=== PATIENT | male | born 1980 | race Caucasian/White ===

== ENCOUNTER 2018-09-23 14:33 | Emergency (ER) | payer OTHER ==
[2018-09-23] MEDS ORDERED: DIPH/PERTUSS(ACELL)/TETANUS VAC/PF 0.5 ML SYR (>=10YO) IM ONE (15:08)
--- NOTE | 2018-09-23 15:10 | ER Document Report ---
ED Medical Screen (RME) - General Chief Complaint: Facial Injury Stated Complaint: FACE LACERATION Time Seen by Provider: 09/23/18 15:03 TRAVEL OUTSIDE OF THE [place] IN LAST 30 DAYS: No - HPI Notes: 09/23/18 15:08 Patient is a 38-year-old male with no significant past medical history who presents complaining of a skin avulsion/laceration to his nose by an attic door prior to arrival. Unknown last tetanus. Patient states that he is missing chunk of skin in that area. Patient states he did lose a veneer from a tooth, but does not have any bony pain of his face otherwise. Denies TRAN, LOC, fever, neck pain, URI, CP, SOB, Abd pain, dysuria, back pain, or rash. I have treated and performed a rapid initial assessment of this patient. A comprehensive ED assessment and evaluation of the patient, analysis of test results and completion of medical decision making process will be conducted by additional ED providers. PHYSICAL EXAMINATION: GENERAL: Well-appearing, well-nourished and in no acute distress. A&Ox4. Answers questions appropriately. Face: There is a large skin avulsion (superficial) noted to the nose. Nose is otherwise midline. There does appear to be a distal laceration that will need further investigation. No bony tenderness to the face. - Related Data Allergies/Adverse Reactions: No Known Allergies Allergy (Verified 09/23/18 14:34) Physical Exam - Vital signs Vitals: Pulse Resp BP Pulse Ox 60 18 132/71 H 96 09/23/18 14:35 09/23/18 14:35 09/23/18 14:35 09/23/18 14:35 Course - Vital Signs Vital signs: Temp Pulse Resp BP Pulse Ox 60 18 132/71 H 96 09/23/18 14:35 09/23/18 14:35 09/23/18 14:35 09/23/18 14:35
[2018-09-23] MEDS ORDERED: ONDANSETRON 4 MG TAB.RAPDIS PO ONE (16:50)
[2018-09-23] MEDS ORDERED: OXYCODONE-ACETAMINOPHEN 5-325 MG TABLET PO ONE (16:50)
[2018-09-23] MEDS ORDERED: LIDOCAINE 4%/TETRACAINE 0.5%/EPI 0.18% 5 ML TOPICAL SOLN TOP ONE (17:02)
--- NOTE | 2018-09-23 17:49 | ER Document Report ---
Addendum entered and electronically signed by BIRD WELCH FNP 09/24/18 01:03: Physical Exam - Vital signs Vitals: Pulse Resp BP Pulse Ox 60 18 132/71 H 96 09/23/18 14:35 09/23/18 14:35 09/23/18 14:35 09/23/18 14:35 - Notes Notes: GENERAL: Well-appearing, well-nourished and in no acute distress. HEAD: Atraumatic, normocephalic. EYES: Pupils equal round and reactive to light, extraocular movements intact, sclera anicteric, conjunctiva are normal. ENT: TMs normal, nares patent, large amount of tissue missing from the nose which appears to be a partial degloving with a 2 mm step off at the tip of the nose, no active bleeding, there is no nasal septal hematoma or septal deviation, no crepitus noted to facial bones with palpation, patient does have a veneer missing from the front tooth without any other gum or dental injury, oropharynx clear without exudates. Moist mucous membranes. NECK: Normal range of motion, supple without lymphadenopathy or JVD. LUNGS: Breath sounds clear to auscultation bilaterally and equal. No wheezes rales or rhonchi. HEART: Regular rate and rhythm without murmurs, rubs or gallops. ABDOMEN: Soft, nontender, normoactive bowel sounds. No guarding, no rebound. No masses appreciated. BACK: No cervical, thoracic, lumbar midline tenderness. No saddle anesthesia, normal distal neurovascular exam. GENITOURINARY: Deferred. EXTREMITIES: Normal range of motion, no pitting or edema. No clubbing or c yanosis. NEUROLOGICAL: Cranial nerves II through XII grossly intact. Normal speech, normal gait. PSYCH: Normal mood, normal affect. SKIN: Warm, Dry, normal turgor, no rashes or lesions noted. - HEENT Teeth diagram: 1 - chipped/missing veneer Original Note: ED Head/Face/Scalp Injury - General TRAVEL OUTSIDE OF THE [place] IN LAST 30 DAYS: No - General Chief Complaint: Facial Injury Stated Complaint: FACE LACERATION Time Seen by Provider: 09/23/18 15:03 Notes: Patient is a 38-year-old male with a history of ulcerative colitis who presents to the emergency department with a chief complaint of facial injury. Patient states that about 1 hour prior to arrival to the emergency department him and a friend were carrying two boards that were connected by a spring. The patient states that they were attempting to install an attic door. Patient states that the spring snapped in the 2 boards closed together. Patient states that the boards closed together on the edge and pinched the tip of his nose. Patient reports significant pain and deformity to the nasal area. Patient denies a specific nosebleed from the nasal area. Patient denies loss of consciousness. Patient denies any other head injury or neck pain. Patient states he is unsure of his tetanus shot is up-to-date. (BIRD WELCH) - Related Data Allergies/Adverse Reactions: No Known Allergies Allergy (Verified 09/23/18 14:34) Past Medical History - General Information source: Patient - Social History Smoking Status: Never Smoker Cigarette use (# per day): No Frequency of alcohol use: Occasional Drug Abuse: None Lives with: Family Family History: None Patient has suicidal ideation: No Patient has homicidal ideation: No - Past Medical History Cardiac Medical History: Reports: None Pulmonary Medical History: Reports: None EENT Medical History: Reports: None Neurological Medical History: Reports: None Endocrine Medical History: Reports: None Renal/ Medical History: Reports: None. Denies: Hx Peritoneal Dialysis Malignancy Medical History: Reports None GI Medical History: Reports: Hx Ulcerative Colitis Musculoskeletal Medical History: Reports None Skin Medical History: Reports None Psychiatric Medical History: Reports: None Traumatic Medical History: Reports: None Infectious Medical History: Reports: None Surgical Hx: Negative Review of Systems - Review of Systems Constitutional: No symptoms reported EENT: See HPI Cardiovascular: No symptoms reported Respiratory: No symptoms reported Gastrointestinal: No symptoms reported Genitourinary: No symptoms reported Male Genitourinary: No symptoms reported Musculoskeletal: No symptoms reported Skin: No symptoms reported Hematologic/Lymphatic: No symptoms reported Neurological/Psychological: No symptoms reported - Vital signs Vitals: Pulse Resp BP Pulse Ox 60 18 132/71 H 96 09/23/18 14:35 09/23/18 14:35 09/23/18 14:35 09/23/18 14:35 Course - Re-evaluation Re-evalutation: 09/23/18 16:45 Upon his initial assessment patient is sitting upright on stretcher and in no acute distress. Patient has a wet dressing over the nasal area. Patient's tetanus was updated in triage. Patient complains of significant pain to the tip of his nose. Will give patient antinausea and pain medication. There does not appear to be an area in which a suture repair is needed. I will consult with my attending physician Dr. Tinsley for further evaluation and management. 09/23/18 18:55 Paged [facility] to consult with plastic surgery. 09/23/18 19:[address] Nik Crowell with plastic surgery at [facility] and discussed patient case and significance of wound, I did state our ENT was concerned that he would need a full thickness skin graft but that we did not have plastics communication center coordinator. He recommends placing a bandage over the wound to include bactriacin, xeroform, and a protective dressing and following up with him in the office on Tuesday at [facility]; have patient call at 0830 am on Tuesday and ask for Olivia. He states he would see the patient outpatient and place patient on the OR schedule for early next week. I did discuss this with my supervising physician Dr. Richelle Tinsley who is in agreement with the plan. (BIRD WELCH) 09/23/18 22:11 I did personally seen and examined this patient in conjunction with the nurse practitioner Bird Welch. Patient sustained a blunt force trauma injury to his nose. There is no nasal septal hematoma, there is no deviation to the nose or the nasal septum itself. There is a large amount of tissue missing from the nose consistent with partial degloving injury. The very tip of the nose is still intact though I am concerned by the large amount of tissue that is missing particularly the step-off around the tip of his nose. I did speak with Dr. Calderón the ENT who is on-call at this facility at this time. He states that this patient will be best served by seeing a plastic surgeon as he will likely need a full-thickness skin graft. We did discuss the case as noted with a surgeon from [facility]. Please see the rest of Aditya's note for further information. (RICHELLE BURGOS) - Vital Signs Vital signs: Temp Pulse Resp BP Pulse Ox 98.2 F 60 16 128/68 H 100 09/23/18 21:13 09/23/18 21:13 09/23/18 21:13 09/23/18 21:13 09/23/18 21:13 Discharge - Discharge Clinical Impression: Injury of nose Qualifiers: Encounter type: initial encounter Qualified Code(s): S09.92XA - Unspecified injury of nose, initial encounter Condition: Stable Disposition: HOME, SELF-CARE Additional Instructions: Today you were seen in the emergency department for an injury to the nose. Your tetanus shot was updated and you have been giving pain medication while you were here. I did speak with the on-call plastic surgeon at [facility] in [place] Dr. Nik Crowell who would like to see you in his office on Tuesday. Dr. Crowell is located at [facility] and the telephone number is [phone] - he states to call the office Tuesday around 0830 and ask for Olivia. The plan is to see you in the office and place you on the OR schedule early next week for surgical intervention of your nose. Until Tuesday he did recommend using bacitracin and a Xeroform gauze with a bandage over the nose. We have dressed you appropriately while in the emergency department and have given you additio nal supplies to dress the wound on Tuesday. I would keep the dressing on until you are seen in the office on Tuesday after changing it tomorrow. Dr. Nik Crowell [facility] [phone] [facility] [address] [place] [address] Please return to the emergency department if you develop any persistent bleeding to the site, increased swelling or increased pain that is uncontrolled with pain medication. Prescriptions: Amox Tr/Potassium Clavulanate [Augmentin 875-125 Tablet] 1 tab PO BID 5 Days #10 tablet
[2018-09-23] MEDS ORDERED: AMOXICILLIN TRIHYD 250 MG CAPSULE PO ONE (20:27)
[2018-09-23] MEDS ORDERED: AMOXICILLIN TR/POT CLAVULANATE 500-125 MG TAB PO ONE (20:27)
[2018-09-23] MEDS ORDERED: HYDROCODONE/ACETAMINOPHEN 5-325 MG (6 TAB/ER DISP) PO PRN (20:30)
[2018-09-23 21:14] VITALS: BP 128/68
== END 2018-09-23 21:14 | disposition home or self-care (01) ==
LOC: ER 14:33
DX: S01.81XA Laceration without foreign body of other part of head, initial encounter (principal); W22.8XXA Striking against or struck by other objects, initial encounter
CPT/HCPCS: 99283; 90471; 90715; J3490 ×2; S0119

== ENCOUNTER 2019-12-30 17:55 | Emergency (ER) | payer OTHER ==
--- NOTE | 2019-12-30 18:41 | ER Document Report ---
ED Medical Screen (RME) - General Chief Complaint: Neck Pain >24hrs old Stated Complaint: EAR,HEAD PAIN Time Seen by Provider: 12/30/19 18:33 Mode of Arrival: Ambulatory Information source: Patient Notes: 39-year-old male presented ED for complaint of pain in front of and behind the left ear. She does not have a definite ear infection on the left side. He states he has been home going for about 4 days. He states he has not had any fevers. He does not have any obvious dental infections. He does not have any obvious abscesses. He states the pain is getting worse. He does have pain with movement of the ear. He does have inflamed lymph nodes to that side of his neck. We will get blood work and a IV contrasted CT of the soft tissue neck. I have greeted and performed a rapid initial assessment of this patient. A comprehensive ED assessment and evaluation of the patient, analysis of test results and completion of medical decision making process will be conducted by an additional ED providers. TRAVEL OUTSIDE OF THE [place] IN LAST 30 DAYS: No - Related Data Allergies/Adverse Reactions: No Known Allergies Allergy (Verified 12/30/19 18:31) Past Medical History - Social History Chew tobacco use (# tins/day): No Frequency of alcohol use: Occasional Drug Abuse: None Renal/ Medical History: Denies: Hx Peritoneal Dialysis GI Medical History: Reports: Hx Ulcerative Colitis Physical Exam - Vital signs Vitals: Temp Pulse Resp BP Pulse Ox 97.7 F 67 16 137/84 H 97 12/30/19 18:06 12/30/19 18:06 12/30/19 18:06 12/30/19 18:06 12/30/19 18:06 Course - Vital Signs Vital signs: Temp Pulse Resp BP Pulse Ox 97.7 F 67 16 137/84 H 97 12/30/19 18:06 12/30/19 18:06 12/30/19 18:06 12/30/19 18:06 12/30/19 18:06
[2019-12-30] MEDS ORDERED: CLINDAMYCIN 600 MG/D5W RTU 600 MG/50 ML RTUPB IV ONE (18:44)
[2019-12-30] MEDS ORDERED: DEXAMETHASONE SOD PHOS INJ 10 MG/1 ML VIAL IV ONE ×2 (18:44→22:07)
[2019-12-30 19:35] LABS: ALBUMIN 4.3 g/dL (3.5-5.0); ALKALINE PHOSPHATASE 58 U/L (38-126); ANION GAP 10 (5-19); ASPARTATE AMINO TRANSFERASE 30 U/L (17-59); BILIRUBIN,DIRECT 0.2 mg/dL (0.0-0.4); BILIRUBIN,TOTAL 0.5 mg/dL (0.2-1.3); BLOOD UREA NITROGEN 12 mg/dL (7-20); CALCIUM 9.8 mg/dL (8.4-10.2); CARBON DIOXIDE 24 mmol/L (22-30); CHLORIDE 107 mmol/L (98-107); GLUCOSE 98 mg/dL (75-110); TOTAL PROTEIN 7.1 g/dL (6.3-8.2)
[2019-12-30 19:41] LABS: ABSOLUTE BASOPHILS # (AUTO) 0.1 10^3/uL (0.0-0.2); ABSOLUTE EOSINOPHILS # (AUTO) 0.4 10^3/uL (0.0-0.6); ABSOLUTE LYMPHOCYTES (AUTO) 2.5 10^3/uL (0.5-4.7); ABSOLUTE MONOCYTES (AUTO) 1.2 10^3/uL (0.1-1.4); ABSOLUTE NEUT (AUTO) 4.5 10^3/uL (1.7-8.2); HEMATOCRIT 50.5 % (37.9-51.0); HEMOGLOBIN 17.7 g/dL (13.5-17.0); LYMPHOCYTES % (AUTO) 28.5 % (13-45); MEAN CORPUSCULAR HEMOGLOBIN 31.1 pg (27.0-33.4); MEAN CORPUSCULAR VOLUME 89 fl (80-97); MONOCYTES % (AUTO) 13.4 % (3-13); PLATELET COUNT 281 10^3/uL (150-450); RED BLOOD COUNT 5.67 10^6/uL (4.35-5.55); RED CELL DISTRIBUTION WIDTH 13.2 % (11.5-14.0); SEGMENTED NEUTROPHILS % (AUTO) 52.1 % (42-78); TOTAL CELLS COUNTED % (AUTO) 100 %; WHITE BLOOD COUNT 8.7 10^3/uL (4.0-10.5)
--- NOTE | 2019-12-30 20:21 | RADIOLOGY REPORT (SQ) ---
EXAM DESCRIPTION: CT neck with contrast CLINICAL HISTORY: 39 years Male, Left periauricular pain COMPARISON: None. TECHNIQUE: Axial images of the neck were performed utilizing intravenous contrast, with sagittal and coronal reformatted images. This exam was performed according to our departmental dose-optimization program which includes use of Automated Exposure Control, adjustment of the mA and/or kV according to patient size and/or use of iterative reconstruction technique. FINDINGS: There is no evidence of abscess in the left periauricular region. The mastoid air cells and middle ear cavities are normally aerated. The epiglottis appears normal. The airways patent. There is no significant adenopathy. There is a retention cyst in the left maxillary sinus. IMPRESSION: No acute finding.
--- NOTE | 2019-12-30 23:40 | ER Document Report ---
ED General - General Chief Complaint: Neck Pain >24hrs old Stated Complaint: EAR,HEAD PAIN Time Seen by Provider: 12/30/19 18:33 Mode of Arrival: Ambulatory TRAVEL OUTSIDE OF THE [place] IN LAST 30 DAYS: No - HPI Notes: Patient is a healthy 39-year-old male who presents with bilateral cervical lymphadenopathy and rash to the top of his head. Patient states that about 1 week ago he was hunting. He sustained several mosquito bites to the top of his head. He states they have been itchy and he has been scratching them. Several days ago, he noticed some pain in front and behind his bilateral ears. He also has some pain and swelling at the sides of his neck bilaterally. He denies any fevers. No neck stiffness. He does have a slight headache. No nausea, vomiting, diarrhea, or chills. He has not taken anything for the pain or seen his family doctor. - Related Data Allergies/Adverse Reactions: No Known Allergies Allergy (Verified 12/30/19 18:31) Past Medical History - General Information source: Patient - Social History Smoking Status: Never Smoker Chew tobacco use (# tins/day): No Frequency of alcohol use: Occasional Drug Abuse: None Family History: None Renal/ Medical History: Denies: Hx Peritoneal Dialysis GI Medical History: Reports: Hx Ulcerative Colitis Review of Systems - Review of Systems Notes: CONSTITUTIONAL: No fever, fatigue or weight loss. SKIN: No rash. HENT: No congestion, ear pain, or sore throat. EYES: No recent vision problems or eye pain. ENDOCRINE: No thyroid problems. No polyuria or polydipsia. CARDIOVASCULAR: No chest pain or edema. RESPIRATORY: No cough, shortness of breath, congestion, or wheezing. GASTROINTESTINAL: No abdominal pain, nausea, vomiting, bloody stools or diarrhea. GENITOURINARY: No dysuria. MUSCULOSKELETAL: No joint pain or swelling. LYMPHATIC: Positive for swollen cervical glands bilaterally. NEUROLOGIC: No seizures. No focal weakness or sensory changes. Positive for headache. HEMATOLOGIC: No unusual bruising or bleeding. PSYCHIATRIC: No depression or anxiety. Physical Exam - Vital signs Vitals: Temp Pulse Resp BP Pulse Ox 97.7 F 67 16 137/84 H 97 12/30/19 18:06 12/30/19 18:06 12/30/19 18:06 12/30/19 18:06 12/30/19 18:06 - General General appearance: Appears well Notes: VITAL SIGNS: Within normal limits. GENERAL: No acute distress, non-toxic appearance. HEAD: 2 insect bites with erythema to top of head consistent with cellulitis. No abscess palpated. EYES: PERRLA, EOMI, conjunctiva normal, no discharge. EARS: Hearing grossly intact. Bilateral tympanic membranes appear normal. No evidence of mastoiditis. NOSE: Normal. THROAT: Oropharynx is normal. No exudates or erythema. NECK: Normal range of motion. No meningismus or rigidity. Full range of motion of neck. Bilateral cervical adenopathy palpated. Posterior auricular lymphadenopathy palpated. CHEST: Clear breath sounds bilaterally. No wheezes, rales, or rhonchi. CARDIAC: Regular rate and rhythm. S1 and S2, without murmurs, gallops, or rubs. VASCULAR: No Edema. ABDOMEN: Normal and soft with no tenderness GENITOURINARY: Normal, No tenderness MUSCULOSKELETAL: Good range of motion of all major joints. Extremities without clubbing, cyanosis or edema. NEUROLOGICAL: Alert and oriented x 3. No focal sensory or strength deficits. Speech normal. Follows commands appropriately. PSYCHIATRIC: Normal Affect, judgement and mood. Course - Re-evaluation Re-evalutation: 12/31/19 01:30 Patient appears well on exam. He is ambulatory. He does not have any neck stiffness and has full range of motion of the neck. I do not suspect meningitis at this time. The top of his head does appear to have evidence of cellulitis from the insect bites. Likely he has the lymphadenopathy from the infection at the top of his head. Patient is afebrile here. His soft tissue neck CT was unremarkable. His lab work was also unremarkable. Patient was given clindamycin and dexamethasone in triage. He has no history of MRSA. Patient will be discharged with Keflex. He was given strict return precautions including worsening pain, any neck stiffness, headaches, fevers, any other concerning symptoms. I instructed him to follow-up with his PCP this week to ensure resolution. - Vital Signs Vital signs: Temp Pulse Resp BP Pulse Ox 98.2 F 63 20 140/95 H 98 12/31/19 00:21 12/31/19 00:21 12/31/19 00:21 12/31/19 00:21 12/31/19 00:21 - Laboratory Result Diagrams: 12/30/19 18:49 12/30/19 18:49 Laboratory results interpreted by me: 12/30/19 18:49 RBC 5.67 H Hgb 17.7 H Lynn % (Auto) 13.4 H - Diagnostic Test Radiology reviewed: Image reviewed, Reports reviewed Discharge - Discharge Clinical Impression: Reactive lymphadenopathy Cellulitis Qualifiers: Site of cellulitis: head Qualified Code(s): L03.811 - Cellulitis of head [any part, except face] Condition: Stable Disposition: HOME, SELF-CARE Instructions: Cellulitis ([facility]) Additional Instructions: Please take your antibiotics as prescribed. You may take Tylenol and ibuprofen for pain. Please return immediately to the ER for any fevers, neck stiffness, worsening pain. Follow-up with your PCP this week. Prescriptions: Cephalexin Monohydrate [Keflex 500 mg Capsule] 500 mg PO QID 7 Days #28 capsule
[2019-12-30] MEDS ORDERED: KETOROLAC TROMETHAMINE INJ/PF 30 MG/1 ML SDV IV ONE (23:46)
[2019-12-31 00:23] VITALS: BP 140/95
== END 2019-12-31 00:26 | disposition home or self-care (01) ==
LOC: ER 17:55
DX: L03.811 Cellulitis of head [any part, except face] (principal); R59.0 Localized enlarged lymph nodes; S00.06XA Insect bite (nonvenomous) of scalp, initial encounter; W57.XXXA Bitten or stung by nonvenomous insect and other nonvenomous arthropods, initial encounter; Y93.89 Activity, other specified
CPT/HCPCS: 99285; 96375; 96365; 96366; 36415; 85025; 80053; 70491; J1885; J1100